=== PATIENT | male | born 1995 ===

== ENCOUNTER 2016-10-23 20:49 | Emergency (ER) | payer BC ==
--- NOTE | 2016-10-23 21:49 | UC ---
Skin Complaint HPI - HPI Summary HPI Summary: The patient comes in today for: 1. Monkey scratches: Onset: 4 days ago. Palliative/provocative: No symptoms at this time. Quality: NO pain. Region: 2 scratches on his right index finger and right thumb. Severity: No pain. Associated symptoms: Event: The patient was in [facility] visiting a monkey reserve. He was scratched along with his friend. However, the friend got rabies vaccine treatment in [facility] for his scratches. He only realized he had monkey scratches later when it was too late to get vaccines in [facility]. He comes back and goes to the [facility] for treatment. [facility] does not accept his insurance and did not give him the vaccines, so they called the Health Department called us and told us to give the vaccines. They also said that we need to call Dr. Ramsey. However, [facility] gave the patient a prescription for valcyclovir. He got blood drawn up there. No fever. Tetanus: 03-05-00 Tdap: 05-09-06 The patient was approved for rabies vaccine by the health department. * - History of Current Complaint Chief Complaint: UCWounds Time Seen by Provider: 10/23/16 21:41 Stated Complaint: RABIES EXPOSURE Hx Obtained From: Patient - Allergy/Home Medications Allergies/Adverse Reactions: Allergies Allergy/AdvReac Type Severity Reaction Status Date / Time No Known Allergies Allergy Verified 10/23/16 21:35 Home Medications: Home Medications ValACYclovir (*) [Valtrex 1 GM(*)] 1 tab PO Q8HR 10/23/16 [History Confirmed 05/31] Review of Systems Constitutional: Negative Skin: Negative Eyes: Negative ENT: Negative Respiratory: Negative Cardiovascular: Negative Gastrointestinal: Negative Genitourinary: Negative All Other Systems Reviewed And Are Negative: Yes PMH/Surg Hx/FS Hx/Imm Hx Previously Healthy: Yes Endocrine History Of: Denies: Diabetes, Thyroid Disease, Hyperthyroidism, Hypothyroidism, Dyslipidemia Cardiovascular History Of: Denies: Cardiac Disorders, Hypertension, Pacemaker/ICD, Myocardial Infarction , Congestive Heart Failure, Atrial Fibrillation, Deep Vein Thrombosis, Bleeding Disorders Respiratory History Of: Reports: Asthma Denies: COPD, Bronchitis, Pneumonia, Pulmonary Embolism GI/ History Of: Denies: Gastroesophageal Reflux, Ulcer, Gastrointestinal Bleed, Gall Bladder Disease, Kidney Stones, Diverticulitis, Renal Disease, Urosepsis Neurological History Of: Denies: TIA, CVA, Dementia, Seizures, Migraine Psychological History Of: Denies: Anxiety, Depression, Bipolar Disorder, Schizophrenia, Post Traumatic Stress Disorder Cancer History Of: Denies: Lung Cancer, Colorectal Cancer, Breast Cancer, Prostate Cancer, Cervical Cancer Other History Of: Negative For: HIV, Hepatitis B, Hepatitis C, Anticoagulant Therapy - Surgical History Surgical History: None - Family History Known Family History: Negative: Cardiac Disease, Hypertension - Social History Occupation: Student Alcohol Use: Weekly Substance Use Type: None Smoking Status (MU): Never Smoked Tobacco - Immunization History Most Recent Influenza Vaccination: Most Recent Tetanus Shot: Thinks it is UTD Physical Exam Triage Information Reviewed: Yes Appearance: Well-Appearing, No Pain Distress, Well-Nourished Vital Signs: Initial Vital Signs Temp 98.5 F 10/23/16 21:25 Pulse 72 10/23/16 21:25 Resp 18 10/23/16 21:25 BP 140/61 10/23/16 21:25 Pulse Ox 99 10/23/16 21:25 Vital Signs Reviewed: Yes Eyes: Positive: Conjunctiva Clear. Negative: Discharge ENT: Positive: Hearing grossly normal. Negative: Pharyngeal erythema, Nasal drainage, TM bulging, TM dull, TM red, Tonsillar swelling, Tonsillar exudate Dental: Negative: Gross Decay/Caries @, Dental Fracture @ Neck: Positive: Supple, Nontender, No Lymphadenopathy. Negative: Nuchal Rigidity Respiratory: Positive: Lungs clear, No respiratory distress, No accessory muscle use. Negative: Crackles, Wheezing Cardiovascular: Positive: RRR, No Murmur Abdomen Description: Positive: Nontender, No Organomegaly, Soft. Negative: Distended, Guarding Musculoskeletal: Positive: Strength Intact, ROM Intact, No Edema Neurological: Positive: Alert, Muscle Tone Normal Psychological: Positive: Age Appropriate Behavior, Consolable Skin: Positive: Other - He has two "scratches" of the right index finger (volar aspect) which are not open and appear healed with only hyperpigmented linear patter to even suggest any scratches. There is a similar one on the thumb.. Negative: rashes, breakdown Course/Dx - Course Course Of Treatment: Dr. Ramsey called ([phone]) at 22:00 and message left. AT 23:30 No call back. Rabies globulin instilled in wound and rest injected into the thighs. 4 cc's were instilled in the wounds. - Diagnoses Provider Diagnoses: Monkey scratches/rabies vaccine and immunoglobulins. Discharge - Discharge Plan Condition: Stable Disposition: HOME Patient Education Materials: Rabies Immune Globulin (By injection), Rabies Vaccine (By injection), Rabies (ED) Referrals: Lakhwinder Acuña MD [Medical Doctor] - As Soon As Possible (Please follow up with [facility] and Dr. Ramsey as has been previously recommended. ) Roxy VILLEGAS,Robel Jc [Medical Doctor] - As Soon As Possible (Please contact Dr. Ramsey for follow up on [facility] request for the patient to be evaluated by him.) Additional Instructions: If any problems, please go to the ER. Take pain medication as needed for discomfort. Watch for increased tenderness and redness. If present, return to the office.
[2016-10-23] MEDS ORDERED: Rabies Immune Globulin(HUMAN)* 150 UNIT/ML 10 ML ONE (22:18)
[2016-10-23] MEDS ORDERED: Rabies Vaccine, PCEC INJ ONE (22:18)
[2016-10-23] MEDS ORDERED: Tetan/Diph/Pertus SYR(Tdap)* 0.5 ML SYR(BOOSTRIX) use SYR IM ONE (22:31)
== END 2016-10-24 00:03 | disposition home or self-care (01) ==
LOC: UCEAST 20:49
DX: S60.410A Abrasion of right index finger, initial encounter (principal); S60.311A Abrasion of right thumb, initial encounter; W55.89XA Other contact with other mammals, initial encounter; Y93.9 Activity, unspecified; Y92.89 Other specified places as the place of occurrence of the external cause; Z23 Encounter for immunization; J45.909 Unspecified asthma, uncomplicated
CPT/HCPCS: 90375; 90471; 90472; 90675; 96372; 99201; G0463